=== PATIENT | male | born 1955 | race Caucasian/White ===

== ENCOUNTER 2019-08-25 09:39 | Observation (INO) | payer MEDICARE, OTHER ==
[~2019-08-25] VITALS: Ht 167.6 cm; Wt 67.7 kg
[2019-08-25] MEDS ORDERED: NORVASC5 MG PO (09:45)
[2019-08-25] MEDS ORDERED: LISINOPRIL20 MG PO (09:45)
[2019-08-25] MEDS ORDERED: FLOMAX0.4 MG PO (09:45)
[2019-08-25] MEDS ORDERED: BAYER CHEWABLE81 MG PO (09:45)
--- NOTE | 2019-08-25 10:19 | NUR ---
DR. ARMIJO IN ROOM TO SEE PT
[2019-08-25 11:02] LABS: INR 1.03 (0.85-1.17)
[2019-08-25 13:36] VITALS: BP 113/68
[2019-08-25 17:45] VITALS: Ht 167.6 cm; Wt 67.7 kg
--- NOTE | 2019-08-25 19:50 | NUR ---
SITTING UP IN BED EATING A SANDWICH. ALERT AND ORIENTED X4. RESP EVEN AND NONLABORED. OCC NONPROD COUGH. BARRIOS CATH PATENT AND DRAINING TEA COLORED URINE. REPORTS BLADDER SPASMS. NEW ORDER NOTED FOR DITROPAN BID PRN AND OFFERED TO PT. SALINE LOCK NOTED TO RT AC. REPORTS PAIN IN PELVIC REGION 3 ON PAIN SCALE. SR ELEVATED X2. CL IN REACH.
--- NOTE | 2019-08-25 19:58 | NUR ---
MEDICATED WITH DITROPAN ORDERED. CL IN REACH.
[2019-08-25 20:25] VITALS: BP 139/58
--- NOTE | 2019-08-25 23:30 | NUR ---
LYING ON RT SIDE IN BED WITH EYES CLOSED. RESP EVEN AND NONLABORED. NO DISTRESS. CL IN REACH.
[2019-08-26 00:20] VITALS: BP 154/60
[2019-08-26 03:56] VITALS: BP 174/70
--- NOTE | 2019-08-26 04:01 | NUR ---
HAS RESTED WELL. LYING IN BED WITH EYES CLOSED. RESP NONLABORED. NO DISTRESS. CL IN REACH.
[2019-08-26 04:10] VITALS: BP 148/70
--- NOTE | 2019-08-26 07:36 | NUR ---
AWAKE AND ALERT. ORIENTED X3. NO C/O THIS AM EXCEPT BEING HUNGRY. LUNGS ARE CLEAR BILATERALLY, NO COUGH NOTED. SKIN IS INTACT WITHOUT REDNESS. SL TO RIGHT AC IS PATENT WITHOUT REDNESS AT INSERTION SITE. BARRIOS PATENT WITH BLOOD TINGED URINE BUT CLEAR YELLOW IN TUBE. DENIES NEEDS.
[2019-08-26 08:39] VITALS: BP 136/75
--- NOTE | 2019-08-26 09:00 | OP ---
PATIENT NAME: CARTER REYES MEDICAL RECORD: [id number] :51 LOCATION:D.MS [id number] ADMISSION DATE:08/25/19 SURGEON: LEANNA ESTEVEZ MD DATE OF OPERATION: 08/25/2019 SURGEON: Leanna Estevez MD ANESTHESIA: TIVA by Bennett Fox CRNA. DIAGNOSES: Urinary retention, gross hematuria. PROCEDURE: Cystoscopy, Hinkle catheter insertion. FINDINGS: Nonobstructive lateral lobes of the prostate. He has an obstructive bladder neck with no median lobe. There were single ureteral orifices bilaterally in the bladder. The bladder mucosa was diffusely inflamed, which is consistent with hemorrhagic cystitis. The bladder was heavily trabeculated with cellules and diverticula. No bladder tumors were seen. ESTIMATED BLOOD LOSS: None. CLINICAL HISTORY: This is a 64-year-old male, who lives in [place], [place]. He presented to the Emergency Room at [facility] with acute urinary retention and episodes of gross hematuria prior to the retention episode. [facility] inserted a catheter into him. They felt that it was quite bloody and not draining well. Also, they performed a CT scan of the abdomen and pelvis without IV contrast. This showed normal appearing kidneys with no signs of kidney stones and no hydronephrosis. There are no filling defects or abnormal contours. The bladder is deflated around the Hinkle catheter. There are intraprostatic stones that I can note on my review of the images based on the disc that was sent over with the patient. The patient was transferred via the transfer center to this hospital for higher level of care. He was kept n.p.o. He was given Ancef survey operations director to the OR. It should be noted that on my view of the urine in the drainage bag, it appears to be more just concentrated urine instead of gross hematuria. DESCRIPTION OF PROCEDURE: The patient was given IV sedation. He was given Ancef survey operations director to the OR. He was then placed into the lithotomy position. The Hinkle catheter placed in [facility] was removed. He was then prepped and draped. Cystoscopy was performed using a 17-Korean cystoscope with 30-degree lens. There is no obstruction in the penile urethra. The prostatic urethra is not obstructive and the bladder neck is quite tight. It is quite high also. Going into the bladder, there is some small bladder stones present and a very diffusely inflamed bladder consistent with hemorrhagic cystitis. No bladder tumors were seen. I irrigated out some of the small bladder stones. At a later date, he may be a candidate for the UroLift procedure in the box configuration around the bladder neck. For the time being, however, I inserted a Sensor wire into the bladder. The scope was then removed, leaving the wire in place. A 16-Korean port lions tip Hinkle catheter was then inserted over the wire into the bladder. The Hinkle catheter balloon was then inflated with 10 cc of sterile water. The wire was then removed entirely. The catheter was put to bag drainage. As the patient has no means to go home today, we will keep him for 23-hour observation. He will have a friend of his drive up from the [place] to pick him up tomorrow. In the meantime, I have started him on oral Levaquin and finasteride. I will see OPERATIVE REPORT [id number] CARTER REYES him in followup in 1-2 weeks' time to recheck his urine and to remove the Hinkle catheter for a voiding trial. I will also discuss the UroLift procedure with him at that time. TRANSINT:[id number] Voice Confirmation ID: [id number] DOCUMENT ID: [id number] LEANNA ESTEVEZ MD at 0900 CC: [id number] DICTATION DATE: 08/25/19 1345 DIRECTOR CARD: 08/25/19 1632 ADM IN [facility] [address] [place] [address]
--- NOTE | 2019-08-26 09:30 | NUR ---
ATE ALL OF BREAKFAST. TOOK AM MEDS WITHOUT DIFFICUTLY. NO C/O AT THIS TIME.
--- NOTE | 2019-08-26 12:25 | MORECARE ---
CASE MANAGEMENT DISCHARGE SUMMARY PATIENT: CARTER REYES UNIT: [id number] ADM DATE: 08/25/19 AGE: 64 : 53 SEX: M ROOM/BED: D.2207 AUTHOR: SACHIN WEISS PHYSICIAN: REFERRING PHYSICIAN: LEANNA ESTEVEZ MD DATE OF SERVICE: 08/26/19 Discharge Plan Patient Name: [facility]TER [facility] [facility] 1955 Planned Disposition: Home or Self Care Anticipated Discharge Date: Discharge Date: Expected LOS: Initial Reviewer: [email or web address] Initial Review Date: 08/25/2019 Generated: 08/26/19 1:24 pm Comments DCP- Discharge Planning Updated by [email or web address]: Yudith Monteiro on 08/26/19 11:[address] Patient to be discharged home today, he has a friend who is coming to get him. I have given him a loose pair of sweatpants to accommodate his leg bag and catheter. 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
--- NOTE | 2019-08-26 12:30 | NUR ---
INSTRUCTED IN CARE OF BARRIOS AT HOME. GIVEN SUPPLIES NEEDED. INSTRUCTED IN USE OF LEG BAG. ABLE TO DO RETURN DEMONSTRATION. DISCHAGE INSTRUCTIONS GIVEN BOTH VERBALLY AND WRITTEN. ALL QUESTIONS ANSWERED. PATIENT VERBALIZED UNDERSTANDING OF SAME. WAITING OF RIDE TO D/C HOME.
[2019-08-26 12:57] VITALS: BP 152/75
--- NOTE | 2019-08-26 14:07 | NUR ---
DISCHARGED TO HOME WITH FRIEND AMBULATORY. ALL BELONGINGS WITH PATIENT.
--- NOTE | 2019-08-27 09:48 | MORECARE ---
CASE MANAGEMENT DISCHARGE SUMMARY PATIENT: CARTER REYES UNIT: [id number] ADM DATE: 08/25/19 AGE: 64 : 53 SEX: M ROOM/BED: D.2207 AUTHOR: SACHIN WEISS PHYSICIAN: REFERRING PHYSICIAN: LEANNA ESTEVEZ MD DATE OF SERVICE: 08/27/19 Discharge Plan Patient Name: CARTER REYES [facility] [facility] 1955 Planned Disposition: Home or Self Care Anticipated Discharge Date: Discharge Date: 08/26/2019 Expected LOS: Initial Reviewer: [email or web address] Initial Review Date: 08/25/2019 Generated: 08/27/19 10:48 am Comments DCP- Discharge Planning Updated by [email or web address]: Yudith Monteiro on 08/26/19 11:[address] Patient to be discharged home today, he has a friend who is coming to get him. I have given him a loose pair of sweatpants to accommodate his leg bag and catheter. 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
[2019-09-14] MEDS ORDERED: ANORO ELLIPTA1 EACH INH (15:26)
[2019-09-14] MEDS ORDERED: VENTOLIN HFA INH (15:27)
== END 2019-08-26 14:11 | disposition home or self-care (01) ==
LOC: D.OPS 09:39 → D.ER 09:39 → EDSTATUS 11:45 → D.MS 13:42 → OBSVTIME 13:43 → D.MS 08-26 14:11
PROVIDERS: Emergency Medicine; ADMIT Urology; ATTEND Urology
DX: R33.9 Retention of urine, unspecified (principal); R31.0 Gross hematuria; N21.0 Calculus in bladder; J44.9 Chronic obstructive pulmonary disease, unspecified; I10 Essential (primary) hypertension

== ENCOUNTER 2019-09-15 06:55 | Day surgery (SDC) | payer MEDICARE, OTHER ==
[~2019-09-15] VITALS: Ht 170.2 cm; Wt 67.1 kg
[~2019-09-15 06:55] MED LIST: ANORO ELLIPTA1 EACH INH; BAYER CHEWABLE81 MG PO; FLOMAX0.4 MG PO; LISINOPRIL20 MG PO; NORVASC5 MG PO; VENTOLIN HFA INH
[2019-09-15 07:18] LABS: HEMATOCRIT 44.5 % (42.0-54.0); HEMOGLOBIN 15.2 g/dL (13.5-17.5); MCH 32.1 pg (26.0-34.0); MCHC 34.2 g/dL (31.0-37.0); MCV 93.9 fL (80.0-100.0); MEAN PLATELET VOLUME 10.2 fL (7.4-10.4); RBC 4.74 10x6/uL (4.20-6.10); RDW 12.2 % (11.5-14.5); WBC 5.9 10x3/uL (4.8-10.8)
[2019-09-15 07:34] LABS: ALBUMIN 3.7 g/dL (3.4-5.0); ANION GAP 11.5 mmol/L (8-16); BILIRUBIN - TOTAL 0.73 mg/dL (0.2-1.3); CALCIUM 8.6 mg/dL (8.5-10.1); CARBON DIOXIDE 31.7 mmol/L (21.0-32.0); CREATININE - SERUM 1.2 mg/dL (0.6-1.3); POTASSIUM - SERUM 4.2 mmol/L (3.5-5.1); PROTEIN - SERUM 6.8 g/dL (6.4-8.2)
[2019-09-15 07:38] LABS: APTT 31.1 SECONDS (22.8-39.4); INR 1.05 (0.85-1.17); PROTIME 13.2 SECONDS (11.6-15.0)
[2019-09-15 07:47] VITALS: BP 136/69; Ht 170.2 cm; Wt 67.1 kg
--- NOTE | 2019-09-15 11:32 | NUR ---
1130 DR. ZENAIDA GRAF.
--- NOTE | 2019-09-15 11:48 | NUR ---
1140 UP TO BR VOIDS QS WITH BLOODY URINE OUTPUT. FL DIET SERVED.
--- NOTE | 2019-09-15 13:14 | OP ---
PATIENT NAME: CARTER REYES MEDICAL RECORD: [id number] :51 LOCATION:[facility] ADMISSION DATE: SURGEON: MAREK ESTEVEZ MD DATE OF OPERATION: 09/15/2019 SURGEON: Marek Estevez MD ANESTHESIA: TIVA by Mariaelena Heredia CRNA. DIAGNOSIS: History of urinary retention due to obstructive benign prostatic hypertrophy. PROCEDURE: UroLift times 4 in box configuration around the bladder neck. FINDINGS: Tight bladder neck, nonobstructive lateral lobes with a prostate. ESTIMATED BLOOD LOSS: None. CLINICAL HISTORY: This is a 64-year-old male, who lives in [facility] in [place], [place]. He presented to the Emergency Room in [place] with acute urinary retention and gross hematuria. They inserted a catheter into him and transferred him here for management. I performed cystoscopy and I noted that he had a tight bladder neck, which was causing obstruction. He may have had a hemorrhagic cystitis as the bladder was diffusely inflamed at that time. There were no bladder tumors seen. Prior to his going into urinary retention, he had issues with urge urinary incontinence, nocturia and urinary frequency. He had been on Flomax for a number of years. Even with the Flomax, he has an IPSS score of 33 and quality of life score of 6. HE IS ALLERGIC TO SULFA AND IODINE. He was given Levaquin senior national account manager to the OR. He comes today to have the UroLift procedure done. DESCRIPTION OF PROCEDURE: The patient was given IV sedation. He was then placed into lithotomy position and prepped and draped. The UroLift scope was introduced after dilating the urethral meatus to 26-Somali with male sounds. The findings are as outlined above. Four units were placed around the bladder neck in a block configuration to open up the bladder neck. All units were placed 1.5 cm distal to the bladder neck. The first 2 were placed at the anterolateral sulcus with 1 unit being placed on each side. The second 2 were placed at the mid prosthetic urethral level with respect to the mid distance between the anterior and posterior of the lateral wall of the prostate. Once all 4 units were placed, the bladder neck was significantly opened up. The bladder was left partly full for a voiding trial. The scope was then removed. If he voids today, then I will see him in followup in 1 months' time to check on his voiding symptoms. TRANSINT:[id number] Voice Confirmation ID: [id number] DOCUMENT ID: [id number] OPERATIVE REPORT [id number] CARTER REYES ROBERT S MD at 1314 CC: [id number] DICTATION DATE: 09/15/19 112 PRODUCTION TROUBLESHOOTER: 09/15/19 1259 REG [facility] [address] [place] [id number]
== END 2019-09-15 12:20 | disposition home or self-care (01) ==
LOC: D.OPS 06:55 → D.PAN 13:00 → D.OPS 13:00
PROVIDERS: Anesthesiology; ATTEND Urology
DX: N40.1 Benign prostatic hyperplasia with lower urinary tract symptoms (principal); R33.9 Retention of urine, unspecified; R31.0 Gross hematuria